=== PATIENT | female | born 1955 | race Caucasian/White ===

== ENCOUNTER 2016-04-23 11:41 | Emergency (ER) | payer SELFPAY ==
[2016-04-23 11:48] VITALS: TEMP 98.7; BMI 40.2
[2016-04-23 12:10] LABS: AUTOMATED BASOPHIL 0.7 % (0-2); AUTOMATED EOSINOPHIL 1.8 % (0-5); AUTOMATED LYMPH 41.3 % (17-44); AUTOMATED MONOCYTE 6.8 % (3-10); AUTOMATED NEUTROPHIL 49.4 % (45-76); MPV 7.4 fL (7.4-10.4)
[2016-04-23 12:20] LABS: BLOOD UREA NITROGEN 12 MG/DL (7-17); CALCIUM 8.9 MG/DL (8.4-10.2); CALCULATED OSMOLALITY 275 MOs/Kg (270-290); CHLORIDE 97 mEq/L (98-107); GLUCOSE 269 MG/DL (70-99); PARTIAL THROMB. TIME 24.3 SEC (22-35); PT-INR 1.1; SODIUM LEVEL 138 mEq/L (137-146)
[2016-04-23 12:26] LABS: LEUKOCYTES/URINE 1+ (NEGATIVE); NITRITE/URINE NEG (NEGATIVE)
[2016-04-23 12:27] LABS: URINE OCCULT BLOOD TRACE (NEG/TRACE)
[2016-04-23 12:29] LABS: WBC/URINE 20-30 (0-5)
[2016-04-23] MEDS ORDERED: SODIUM CHLORIDE 0.9% 3 ML FLUSH FLUSH PRN (13:38)
[2016-04-23] MEDS ORDERED: PANTOPRAZOLE 40 MG VIAL IV ONE (13:38)
[2016-04-23] MEDS ORDERED: ONDANSETRON HCL 4 MG/2 ML VIAL IV ONE ×2 (13:40→17:28)
--- NOTE | 2016-04-23 13:44 | EDPRACDOC ---
- General Information Chief Complaint: Abdominal Pain Stated Complaint: CHEST TIGHTNESS - SENT FROM [facility] Time Seen by Provider: 04/23/16 13:31 Information Source: Patient Mode Of Arrival: Car Home Medications: Home Medications Amitriptyline HCl [Elavil] 150 mg PO HS 03/20/12 Cyclobenzaprine HCl [Flexeril] 10 mg PO TID PRN 03/20/12 Esomeprazole Mag Trihydrate [Nexium] 40 mg PO BID 03/20/12 Gabapentin [Neurontin] 300 mg PO TID 03/20/12 Insulin Glargine,Hum.rec.anlog [Lantus] 60 units SQ BID 03/20/12 Sitagliptin Phosphate [Januvia] 100 mg PO DAILY 05/06/13 Amlodipine [Norvasc] 5 mg PO DAILY 06/27/13 Aspirin (Enteric Coated) [Halfprin] 81 mg PO DAILY 06/27/13 Potassium Chloride 10 meq PO DAILY 02/22/14 Promethazine [Phenergan] 25 mg PO Q6H PRN 02/22/14 Furosemide [Lasix] 40 mg PO BID 09/30/14 Acetaminophen [Tylenol] 650 mg PO Q6H 10/12/15 Albuterol Sulfate MDI [Proventil HFA] 2 puff INH Q6H PRN 10/12/15 Butalb/Acetaminophen/Caffeine [Fioricet Tablet (50mg/325mg/40mg)] 1 tab PO Q4H PRN 10/12/15 Docusate Sodium [Doc-Q-Lace] 100 mg PO BID 10/12/15 Insulin Novolog 70/30 MIX [Novolog 70-30 Mix] 0 units SQ .SLIDING SCALE Metoprolol Succinate (XL) [Toprol Xl] 200 mg PO DAILY 10/12/15 Ferrous Sulfate [Iron] 325 mg PO DAILY 04/23/16 Omeprazole 20 mg PO DAILY #14 tablet. 04/23/16 Ondansetron HCl [Zofran] 4 mg PO Q6H PRN #15 tab 04/23/16 Allergies/Adverse Reactions: Allergies Allergy/AdvReac Type Severity Reaction Status Date / Time codeine [Codeine] Allergy PAIN Verified 04/23/16 11:45 metoclopramide HCl Allergy NERVOUS Verified 04/23/16 11:45 [From Reglan] Penicillins Allergy RASH Verified 04/23/16 11:45 - History of Present Illness Onset: Saturday HPI: Patient reports epigastric pain with burning into her chest since Saturday. States it has been constant. Patient denies SOB. Reports nausea/vomiting, no diarrhea. No fever, chills, denies cough/congestion. Patient does have HTM/DMII/ hyperlipidemia. Patient does not have CP without the "burning" from her epigastric area with pain to LUQ as well. Pain Location: Reports: Epigastric, LLQ Pain Context: Reports: Spontaneous Pain Severity: Mild Pain Quality: Reports: Aching, Burning Pain Radiation: Reports: Chest Blood Type: Unknown Modifying Factors: improves with: Nothing Female Associated Signs & Symptoms: Reports: Nausea, Vomiting. Denies: Diarrhea , Dysuria, Urgency Oral Intake: Normal Urinary Output: Normal ED Past Medical History - History Reviewed Yes Nurses notes reviewed and agree except as marked - Patient Medical History Cardiac History: Reports: Hypertension, Hypercholesterolemia Respiratory History: Reports: COPD GI/ History: Reports: Gastroesophageal Reflux Musculoskeletal History: Reports: Arthritis (L elbow) Psychological History: Reports: Anxiety. Denies: Depression, Substance Use Disorder Systemic History: Reports: Cancer (ovarian cancer - HYSTERECTOMY 10/05/15 AT PENDING SALE TO [facility]) , Diabetes (IDDM) Surgical History: Reports: Cholecystectomy, Hysterectomy, Other (HERNIA REPAIR, TUBAL LIGATION, BRENDON) - Family Medical History Reports: Hypertension, Diabetes, Cancer (KIDNEY-BROTHER/LUNG CA-SISTER), Stroke , Cardiac Disorders, Renal Disease - Social Medical History Smoking Status: Never smoker Social History: Denies: Substance Use Disorder ETOH: None Substance Abuse: None Lives In: Home EDM Review of Systems - Review of Systems ROS Negative Except as Marked: Yes All systems reviewed and were negative except as marked Constitutional: No Symptoms Reported. negative: Chills, Fever Eyes: No Symptoms Reported Ears: No Symptoms Reported Throat: No Symptoms Reported Nose: No Symptoms Reported Mouth: No Symptoms Reported Respiratory: No Symptoms Reported Gastrointestinal: Nausea, Pain, Vomiting. negative: Constipation, Diarrhea Genitourinary: No Symptoms Reported Neurological: No Symptoms Reported Musculoskeletal: No Symptoms Reported - Physical Exam Constitutional: Alert (Awake), No apparent distress Oriented to: Time, Person, Place Last recorded Vital Signs: Last Vital Signs Temp 98.7 F 04/23/16 11:45 Pulse 97 04/23/16 17:15 Resp 18 04/23/16 17:15 BP 185/87 H 04/23/16 17:15 Pulse Ox 95 04/23/16 17:15 Oxygen Pulse Oxygen Saturation 95 O2 Device Room Air Oxygen Flow Rate Fraction of Inspired Oxygen ( FIO2) - HEENT Head: Normal ( normocephalic) Eye Exam: Normal (PERRL, EOMI, Sclera white) Nose: No Symptoms Reported (septum midline) Neck: Normal (FROM, trachea at midline) - Respiratory/Cardiovascular Respiratory: Normal - CTA (BBS clear to auscultation without adventitious sounds ) Cardiovascular: Normal (RRR without murmur, gallop or rub) - GI Auscultation: Normal (NABS) Tenderness: Mild, LLQ, Epigastric - Musculoskeletal Back: Normal (Non-Tender) Extremities: Normal (Normal tone, Pulses 2+ No cyanosis or edema, FROM) - Integumentary Skin: Normal, Warm, Dry Lymphatics: Normal (no adenopathy) - Neurologic Memory Impaired: Normal Motor Function: Normal (Normal tone, Pulses 2+ No cyanosis or edema, FROM) Mood Description: Normal - Re-evaluation Re-evaluation 1 Re-evaluation Time: 17:33 Dr. Chavira has seen patient as well. Agrees with plan for d/c, non-cardiac. - Results 04/23/16 11:52 04/23/16 11:52 WBC 5.2 xk/uL (3.8-10.8) 04/23/16 11:52 RBC 5.14 xM/uL (4.20-5.40) 04/23/16 11:52 Hgb 14.3 g/dL (12.0-16.0) 04/23/16 11:52 Hct 42.3 % (36-47) 04/23/16 11:52 MCV 82 fL (81-99) 04/23/16 11:52 MCH 27.8 pg (27-32) 04/23/16 11:52 MCHC 33.8 g/dl (33-36) 04/23/16 11:52 RDW 14.7 % (11.5-14.5) H 04/23/16 11:52 Plt Count 148 xk/uL (130-400) 04/23/16 11:52 MPV 7.4 fL (7.4-10.4) 04/23/16 11:52 Neut % (Auto) 49.4 % (45-76) 04/23/16 11:52 Lymph % (Auto) 41.3 % (17-44) 04/23/16 11:52 [place] % (Auto) 6.8 % (3-10) 04/23/16 11:52 Eos % (Auto) 1.8 % (0-5) 04/23/16 11:52 Baso % (Auto) 0.7 % (0-2) 04/23/16 11:52 Absolute Neuts (auto) 2.55 xk/uL (1.7-8.2) 04/23/16 11:52 Absolute Lymphs (auto) 2.13 xk/uL (0.65-4.75) 04/23/16 11:52 PT 11.4 SEC (9.2-11.2) H 04/23/16 11:52 INR 1.1 04/23/16 11:52 APTT 24.3 SEC (22-35) 04/23/16 11:52 Sodium 138 mEq/L (137-146) 04/23/16 11:52 Potassium 3.2 mEq/L (3.5-5.1) L 04/23/16 11:52 Chloride 97 mEq/L (98-107) L 04/23/16 11:52 Carbon Dioxide 28 mMOL/L (22-33) 04/23/16 11:52 Anion Gap 16 mEq/L (8-16) 04/23/16 11:52 BUN 12 MG/DL (7-17) 04/23/16 11:52 Creatinine 0.50 MG/DL (0.52-1.04) L 04/23/16 11:52 Estimated GFR (MDRD) > 60 mL/min (>=60) 04/23/16 11:52 Glucose 269 MG/DL (70-99) H 04/23/16 11:52 Calculated Osmolality 275 MOs/Kg (270-290) 04/23/16 11:52 Calcium 8.9 MG/DL (8.4-10.2) 04/23/16 11:52 Total Bilirubin 0.8 MG/DL (0.2-1.3) 04/23/16 11:52 AST 66 IU/L (14-36) H 04/23/16 11:52 ALT 73 IU/L (9-52) H 04/23/16 11:52 Alkaline Phosphatase 105 IU/L (55-165) 04/23/16 11:52 Troponin I < 0.01 ng/mL (<.04) 04/23/16 15:16 Dqn-[id number] Pept 73 pg/mL (0-900) 04/23/16 11:52 Total Protein 8.0 G/DL (6.3-8.2) 04/23/16 11:52 Albumin 4.3 G/DL (3.5-5.0) 04/23/16 11:52 Lipase 107 U/L (23-300) 04/23/16 11:52 Urine Color Yellow 04/23/16 12:00 Urine Clarity Sl hzy 04/23/16 12:00 Urine pH 6.0 (5.0-8.0) 04/23/16 12:00 Ur Specific [place] 1.010 (1.003-1.035) 04/23/16 12:00 Urine Protein Neg (NEG/TRACE) 04/23/16 12:00 Urine Glucose (UA) 2+ (NEGATIVE) H 04/23/16 12:00 Urine Ketones Trace (NEGATIVE) H 04/23/16 12:00 Urine Occult Blood Trace (NEG/TRACE) 04/23/16 12:00 Urine Nitrite Neg (NEGATIVE) 04/23/16 12:00 Urine Bilirubin Neg (NEGATIVE) 04/23/16 12:00 Urine Urobilinogen 0.2 MG/DL (0-1) 04/23/16 12:00 Ur Leukocyte Esterase 1+ (NEGATIVE) H 04/23/16 12:00 Urine RBC 2-5 (0-5) 04/23/16 12:00 Urine WBC 20-30 (0-5) H 04/23/16 12:00 Ur Epithelial Cells 2+ 04/23/16 12:00 Urine Bacteria Few (NEG/FEW) 04/23/16 12:00 Urine Mucus Occ (NEG/OCC) 04/23/16 12:00 Lab Results 04/23/16 04/23/16 04/23/16 15:16 12:00 11:52 WBC RBC Hgb Hct MCV MCH MCHC RDW Plt Count MPV Neut % (Auto) Lymph % (Auto) [place] % (Auto) Eos % (Auto) Baso % (Auto) Absolute Neuts (auto) Absolute Lymphs (auto) PT INR APTT Sodium Potassium Chloride Carbon Dioxide Anion Gap BUN Creatinine Estimated GFR (MDRD) Glucose Calculated Osmolality Calcium Total Bilirubin AST ALT Alkaline Phosphatase Troponin I < 0.01 Otv-L-Ifcwvyzyolz Pept Total Protein Albumin Lipase 107 Urine Color Yellow Urine Clarity Sl hzy Urine pH 6.0 Ur Specific [place] 1.010 Urine Protein Neg Urine Glucose (UA) 2+ H Urine Ketones Trace H Urine Occult Blood Trace Urine Nitrite Neg Urine Bilirubin Neg Urine Urobilinogen 0.2 Ur Leukocyte Esterase 1+ H Urine RBC 2-5 Urine WBC 20-30 H Ur Epithelial Cells 2+ Urine Bacteria Few Urine Mucus Occ 04/23/16 04/23/16 04/23/16 11:52 11:52 11:52 WBC 5.2 RBC 5.14 Hgb 14.3 Hct 42.3 MCV 82 MCH 27.8 MCHC 33.8 RDW 14.7 H Plt Count 148 MPV 7.4 Neut % (Auto) 49.4 Lymph % (Auto) 41.3 [place] % (Auto) 6.8 Eos % (Auto) 1.8 Baso % (Auto) 0.7 Absolute Neuts (auto) 2.55 Absolute Lymphs (auto) 2.13 PT 11.4 H INR 1.1 APTT 24.3 Sodium 138 Potassium 3.2 L Chloride 97 L Carbon Dioxide 28 Anion Gap 16 BUN 12 Creatinine 0.50 L Estimated GFR (MDRD) > 60 Glucose 269 H Calculated Osmolality 275 Calcium 8.9 Total Bilirubin 0.8 AST 66 H ALT 73 H Alkaline Phosphatase 105 Troponin I < 0.01 Zsv-O-Rnnwgmlcadn Pept 73 Total Protein 8.0 Albumin 4.3 Lipase Urine Color Urine Clarity Urine pH Ur Specific [place] Urine Protein Urine Glucose (UA) Urine Ketones Urine Occult Blood Urine Nitrite Urine Bilirubin Urine Urobilinogen Ur Leukocyte Esterase Urine RBC Urine WBC Ur Epithelial Cells Urine Bacteria Urine Mucus Decision Time to Discharge: 17:34 - Departure Disposition: Home Condition: Good Final Diagnosis: Epigastric abdominal pain Instructions: Non-pharmacological Pain Management Therapies for Adults (GEN), Abdominal Pain (ED) Education/Counseling Given To: Patient Education/Counseling Given Regarding: Diagnosis, Treatment, Prognosis, Follow Up Referrals: Marley Lara MD [Primary Care Provider] - 1-2 days Ho Villareal MD [Staff Physician] - 1-2 days Prescriptions: New Omeprazole 20 mg PO DAILY #14 tablet. Ondansetron HCl [Zofran] 4 mg PO Q6H PRN #15 tab PRN Reason: Nausea/Vomiting No Action Cyclobenzaprine HCl [Flexeril] 10 mg PO TID PRN PRN Reason: Muscle Spasms Amitriptyline HCl [Elavil] 150 mg PO HS Esomeprazole Mag Trihydrate [Nexium] 40 mg PO BID Insulin Glargine,Hum.rec.anlog [Lantus] 60 units SQ BID Gabapentin [Neurontin] 300 mg PO TID Sitagliptin Phosphate [Januvia] 100 mg PO DAILY Amlodipine [Norvasc] 5 mg PO DAILY Aspirin (Enteric Coated) [Halfprin] 81 mg PO DAILY Promethazine [Phenergan] 25 mg PO Q6H PRN PRN Reason: Nausea/Vomiting Potassium Chloride 10 meq PO DAILY Furosemide [Lasix] 40 mg PO BID Insulin Novolog 70/30 MIX [Novolog 70-30 Mix] 0 units SQ .SLIDING SCALE Butalb/Acetaminophen/Caffeine [Fioricet Tablet (50mg/325mg/40mg)] 1 tab PO Q4H PRN PRN Reason: Headache Albuterol Sulfate MDI [Proventil HFA] 2 puff INH Q6H PRN PRN Reason: WHEEZING,SHOB Docusate Sodium [Doc-Q-Lace] 100 mg PO BID Acetaminophen [Tylenol] 650 mg PO Q6H Metoprolol Succinate (XL) [Toprol Xl] 200 mg PO DAILY Ferrous Sulfate [Iron] 325 mg PO DAILY Additional Instructions: Please followup with PCP in 1-2days. Return to ED if symptoms worsen/change or concerns arise. Stay well hydrated.
--- NOTE | 2016-04-23 13:57 | DIRPT ---
CLINICAL DATA: Chest pain. EXAM: PORTABLE CHEST 1 VIEW COMPARISON: 10/12/2015 FINDINGS: The heart size and mediastinal contours are within normal limits. Both lungs are clear. The visualized skeletal structures are unremarkable. IMPRESSION: Normal chest. Electronically Signed By: Hans Plasencia M.D. On: 04/23/2016 13:54
[2016-04-23] MEDS ORDERED: Pharmacy Review for Metformin - IV Contrast Given SCH (14:00)
[2016-04-23] MEDS ORDERED: ACETAMINOPHEN 325 MG/TAB TABLET PO ONE (15:04)
--- NOTE | 2016-04-23 15:10 | DIRPT ---
CLINICAL DATA: Upper abdominal pain for several days. Nausea. No history of malignancy. The patient is status post hysterectomy, appendectomy, cholecystectomy, and hernia repair. EXAM: CT ABDOMEN AND PELVIS WITH CONTRAST TECHNIQUE: Multidetector CT imaging of the abdomen and pelvis was performed using the standard protocol following bolus administration of intravenous contrast. CONTRAST: 100 cc of Isovue 370 COMPARISON: October 20, 2015 FINDINGS: Normal lung bases. No free air or free fluid. The previously seen hematoma in the right anterior abdominal wall has resolved. Postsurgical scarring is seen in the anterior abdominal wall. The anterior abdominal wall is otherwise normal. There is a cyst in the lower pole of the right kidney, best seen on coronal imaging. There is also a 5 mm stone in the lower pole of the right kidney which was also seen previously. A tiny cyst is seen in the left kidney. There is a new stone in the lower pole of the left kidney on coronal image 52 measuring 9.4 mm. No other renal stones are seen. No suspicious solid renal masses. Mild chronic perinephric stranding with no acute perinephric stranding identified. The ureters are nondilated with no stones. Hepatic steatosis is again identified. The patient is status post cholecystectomy. The portal vein, spleen, adrenal glands, and pancreas are normal. A prominent gastrohepatic ligament on series 3, image 22 is not significantly changed in the interval. In fact, this node is similar in size when compared to 2014 and was also present on 2012. Recommend attention on follow-up. A few shotty nodes in the retroperitoneum are unchanged and likely reactive. No other adenopathy is identified. The colon is normal. The stomach and small bowel are unremarkable. The appendix is surgically absent. Atherosclerotic changes seen in the non aneurysmal aorta. No adenopathy or mass seen in the pelvis. The patient is status post hysterectomy. The bladder is normal. No acute bony abnormalities. IMPRESSION: 1. Nonobstructive renal stones. 2. No other acute abnormalities identified. Electronically Signed By: Luisito Bro III, M.D On: 04/23/2016 15:08
[2016-04-23 17:49] VITALS: BP 191/88; PULSE 96
[2016-04-23] MEDS ORDERED: SODIUM CHLORIDE 0.9% 3 ML FLUSH FLUSH SCH (18:00)
== END 2016-04-23 17:48 | disposition home or self-care (01) ==
LOC: ED 11:41
DX: R10.13 Epigastric pain (principal)
CPT/HCPCS: 36415; 71010; 74177; 80053; 81001; 83690; 83880; 84484; 85025; 85610; 85730; 93005; 96374; 96375; 96376; 99284; A9698; J2405; J3490; S0164